=== PATIENT | female | born 1945 | race Caucasian/White ===

== ENCOUNTER 2021-07-01 10:19 | Inpatient (IN) | payer MEDICARE ==
[2021-07-01 15:47] VITALS: BMI 20.5
[2021-07-01] MEDS ORDERED: FLU VACC QS2021-22(65YR UP)/PF 240 MCG/0.7 ML SYRINGE IM ONE (16:00)
[2021-07-01] MEDS: Fentanyl 100 MCG/2 ML VIAL SLOW IVP PRN ×2 (17:44→21:31)
[2021-07-01] MEDS ORDERED: Albuterol Sulfate 2.5 mg/3 ml Neb NEB PRN (18:20)
[2021-07-01] MEDS ORDERED: Bisacodyl 10 MG SUPP PR PRN (18:20)
[2021-07-01] MEDS ORDERED: Albuterol 200 PUFF (6.7GM INHALER) INH PRN ×2 (18:59→19:15)
[2021-07-01] MEDS: Gabapentin 400 MG CAP PO SCH (21:27)
[2021-07-01] MEDS: Famotidine 20 MG TAB PO SCH (21:28)
[2021-07-01] MEDS: Enoxaparin Sodium 60 MG/0.6 ML SYRINGE SC SCH (21:30)
[2021-07-02] MEDS: Fentanyl 100 MCG/2 ML VIAL SLOW IVP PRN ×5 (01:17→22:00)
[2021-07-02] MEDS ORDERED: Cyclobenzaprine 10 MG TAB PO SCH ×2 (04:00→10:45)
[2021-07-02] MEDS: Levothyroxine Sodium 75 MCG TAB PO SCH (06:02)
[2021-07-02] MEDS ORDERED: hydrALAZINE 20 MG/ML VIAL SLOW IVP PRN (06:41)
[2021-07-02] MEDS ORDERED: Gabapentin 400 MG CAP PO SCH (07:30)
[2021-07-02] MEDS: Famotidine 20 MG TAB PO SCH ×2 (08:33→21:35)
[2021-07-02] MEDS: Gabapentin 400 MG CAP PO SCH ×2 (08:34→21:35)
[2021-07-02] MEDS: Aspirin 81 mg Enteric Coated Tablet PO SCH (08:34)
[2021-07-02] MEDS: Enoxaparin Sodium 60 MG/0.6 ML SYRINGE SC SCH ×2 (08:36→21:34)
[2021-07-02] MEDS: fentaNYL 50 mcg/hour Patch TD SCH (09:49)
[2021-07-02] MEDS ORDERED: Fentanyl 100 MCG/2 ML VIAL SLOW IVP SCH (10:30)
[2021-07-02] MEDS ORDERED: Lorazepam 2 MG/ML VIAL SLOW IVP PRN (10:39)
[2021-07-02] MEDS ORDERED: Guaifenesin DM 100-10/5 ML UDCUP PO PRN (14:00)
[2021-07-02 14:13] LABS: ALT (SGPT) 23 U/L (8-55); AST (SGOT) 47 U/L (5-34); Albumin 3.9 g/dL (3.4-4.8); Alkaline Phosphatase 53 U/L (40-110); Anion Gap 17 mmol/L (10-20); BUN (Urea Nitrogen) 7 mg/dL (9.8-20.1); Bilirubin, Total 0.4 mg/dL (0.2-1.2); Calc. Creatinine Clearance 57 mL/min (70-130); Calcium 8.4 mg/dL (7.8-10.44); Carbon Dioxide 19 mmol/L (23-31); Chloride 102 mmol/L (98-107); Globulin 2.6 g/dL (2.4-3.5); Glucose 124 mg/dL (83-110); Potassium 3.6 mmol/L (3.5-5.1); Protein, Total 6.5 g/dL (5.8-8.1); Sodium 134 mmol/L (136-145)
[2021-07-02 14:54] LABS: #Lymphocytes 0.7 thou/uL (1.20-3.40); #Monocytes 0.5 thou/uL (0.11-0.59); #Neutrophils 2.3 thou/uL (1.40-6.50); %Basophils 0.7 % (0.0-1.0); %Eosinophils 0.2 % (0.0-10.0); %Lymphocytes 19.9 % (21.0-51.0); %Monocytes 14.1 % (0.0-10.0); %Neutrophils 65.2 % (42.0-75.0); Hemoglobin 12.3 g/dL (12.0-16.0); Mean Corpuscular HGB CONC 34.7 g/dL (32.0-36.0); Mean Corpuscular Hemoglobin 31.7 pg (27.0-31.0); Mean Corpuscular Volume 91.5 fL (78.0-98.0); Mean Platelet Volume 7.7 fL (7.4-10.4); Platelet Count 130 thou/uL (130-400); RBC Distribution Width 12.1 % (11.5-14.5); Red Blood Cell (RBC) Count 3.86 mill/uL (4.20-5.40); White Blood Cell (WBC) Count 3.5 thou/uL (4.8-10.8)
[2021-07-02] MEDS: Acetaminophen 325 MG TAB PO PRN (15:43)
[2021-07-02 20:04] LABS: SARS-CoV-2 IgG Ab Non-Reactive (NonReactive)
[2021-07-02 20:09] LABS: SARS-CoV-2 IgG Index 0.02 S/CO (< 1.40)
[2021-07-02] MEDS: Cyclobenzaprine 10 MG TAB PO SCH (21:34)
[2021-07-02] MEDS: Rosuvastatin 10 MG TAB PO SCH (21:35)
[2021-07-02] MEDS ORDERED: Ondansetron PF 4 MG/2 ML Vial IVP PRN (22:05)
[2021-07-03] MEDS: Acetaminophen 325 MG TAB PO PRN (02:05)
[2021-07-03] MEDS: Levothyroxine Sodium 75 MCG TAB PO SCH (05:33)
[2021-07-03] MEDS: Cyclobenzaprine 10 MG TAB PO SCH ×2 (09:06→20:28)
[2021-07-03] MEDS: Famotidine 20 MG TAB PO SCH ×2 (09:06→20:28)
[2021-07-03] MEDS: Aspirin 81 mg Enteric Coated Tablet PO SCH (09:07)
[2021-07-03] MEDS: Gabapentin 400 MG CAP PO SCH ×2 (09:08→20:29)
[2021-07-03] MEDS: Enoxaparin Sodium 60 MG/0.6 ML SYRINGE SC SCH ×2 (09:09→20:28)
[2021-07-03] MEDS ORDERED: CASIRIVIMAB/IMDEVIMAB 10 ML in Sodium Chloride 0.9% 250 ML 250 ML IV SCH (13:00)
[2021-07-03] MEDS: Rosuvastatin 10 MG TAB PO SCH (20:29)
[2021-07-04] MEDS: Acetaminophen 325 MG TAB PO PRN (01:55)
[2021-07-04] MEDS: Levothyroxine Sodium 75 MCG TAB PO SCH (05:48)
[2021-07-04] MEDS: Aspirin 81 mg Enteric Coated Tablet PO SCH (09:05)
[2021-07-04] MEDS: Famotidine 20 MG TAB PO SCH ×2 (09:05→20:56)
[2021-07-04] MEDS: Enoxaparin Sodium 60 MG/0.6 ML SYRINGE SC SCH ×2 (09:05→20:55)
[2021-07-04] MEDS: Cyclobenzaprine 10 MG TAB PO SCH ×2 (09:05→20:55)
[2021-07-04] MEDS: Gabapentin 400 MG CAP PO SCH ×2 (09:09→20:56)
[2021-07-04] MEDS ORDERED: Sodium Chloride 0.9% 500 ML IV SCH (14:00)
[2021-07-04] MEDS: Rosuvastatin 10 MG TAB PO SCH (20:57)
[2021-07-05] MEDS: Levothyroxine Sodium 75 MCG TAB PO SCH (05:59)
[2021-07-05] MEDS: Aspirin 81 mg Enteric Coated Tablet PO SCH (08:30)
[2021-07-05] MEDS: Gabapentin 400 MG CAP PO SCH ×2 (08:37→21:03)
[2021-07-05] MEDS: Famotidine 20 MG TAB PO SCH ×2 (08:38→21:02)
[2021-07-05] MEDS: Cyclobenzaprine 10 MG TAB PO SCH ×2 (08:38→21:01)
[2021-07-05] MEDS: Enoxaparin Sodium 60 MG/0.6 ML SYRINGE SC SCH ×2 (08:38→21:01)
[2021-07-05] MEDS: fentaNYL 50 mcg/hour Patch TD SCH (11:47)
[2021-07-05] MEDS: Acetaminophen 325 MG TAB PO PRN (16:51)
[2021-07-05] MEDS: Rosuvastatin 10 MG TAB PO SCH (21:03)
[2021-07-06] MEDS: Levothyroxine Sodium 75 MCG TAB PO SCH (05:20)
[2021-07-06] MEDS: Enoxaparin Sodium 60 MG/0.6 ML SYRINGE SC SCH (08:37)
[2021-07-06] MEDS: Cyclobenzaprine 10 MG TAB PO SCH ×2 (08:37→21:42)
[2021-07-06] MEDS: Aspirin 81 mg Enteric Coated Tablet PO SCH (08:37)
[2021-07-06] MEDS: Famotidine 20 MG TAB PO SCH ×2 (08:37→21:42)
[2021-07-06] MEDS: Gabapentin 400 MG CAP PO SCH ×2 (08:38→21:50)
[2021-07-06 10:15] LABS: #Eosinphils 0.1 thou/uL (0.0-0.7); #Lymphocytes 1.2 thou/uL (1.20-3.40); #Monocytes 0.6 thou/uL (0.11-0.59); #Neutrophils 5.6 thou/uL (1.40-6.50); %Basophils 0.3 % (0.0-1.0); %Eosinophils 0.7 % (0.0-10.0); %Lymphocytes 16.1 % (21.0-51.0); %Monocytes 8.1 % (0.0-10.0); %Neutrophils 74.9 % (42.0-75.0); Hemoglobin 10.6 g/dL (12.0-16.0); Mean Corpuscular HGB CONC 34.2 g/dL (32.0-36.0); Mean Corpuscular Hemoglobin 31.2 pg (27.0-31.0); Mean Corpuscular Volume 91.2 fL (78.0-98.0); Mean Platelet Volume 8.2 fL (7.4-10.4); Platelet Count 128 thou/uL (130-400); RBC Distribution Width 12.3 % (11.5-14.5); White Blood Cell (WBC) Count 7.5 thou/uL (4.8-10.8)
[2021-07-06 10:50] LABS: Chloride 101 mmol/L (98-107); Potassium 3.9 mmol/L (3.5-5.1); Sodium 133 mmol/L (136-145)
[2021-07-06 10:51] LABS: Glucose 109 mg/dL (83-110)
[2021-07-06 10:52] LABS: Carbon Dioxide 24 mmol/L (23-31)
[2021-07-06 10:53] LABS: Anion Gap 12 mmol/L (10-20)
[2021-07-06 10:55] LABS: BUN (Urea Nitrogen) 12 mg/dL (9.8-20.1); Calc. Creatinine Clearance 65 mL/min (70-130)
[2021-07-06] MEDS: Enoxaparin Sodium 40 MG/0.4 ML SYRINGE SC SCH (21:42)
[2021-07-06] MEDS: Rosuvastatin 10 MG TAB PO SCH (21:43)
[2021-07-06] MEDS: Acetaminophen 325 MG TAB PO PRN (21:43)
[2021-07-07] MEDS: Levothyroxine Sodium 75 MCG TAB PO SCH (06:04)
[2021-07-07] MEDS: Acetaminophen 325 MG TAB PO PRN ×3 (06:04→21:22)
[2021-07-07] MEDS: Famotidine 20 MG TAB PO SCH ×2 (08:43→21:22)
[2021-07-07] MEDS: Cyclobenzaprine 10 MG TAB PO SCH (08:43)
[2021-07-07] MEDS: Aspirin 81 mg Enteric Coated Tablet PO SCH (08:43)
[2021-07-07] MEDS: Gabapentin 400 MG CAP PO SCH ×2 (08:43→21:23)
[2021-07-07] MEDS: Cyclobenzaprine 10 MG TAB PO PRN (13:56)
[2021-07-07] MEDS: Enoxaparin Sodium 40 MG/0.4 ML SYRINGE SC SCH (21:22)
[2021-07-07] MEDS: Rosuvastatin 10 MG TAB PO SCH (21:22)
[2021-07-08] MEDS: Acetaminophen 325 MG TAB PO PRN (05:23)
[2021-07-08] MEDS: Levothyroxine Sodium 75 MCG TAB PO SCH (05:23)
[2021-07-08] MEDS: Gabapentin 400 MG CAP PO SCH ×2 (07:48→21:40)
[2021-07-08] MEDS: Cyclobenzaprine 10 MG TAB PO PRN (07:48)
[2021-07-08] MEDS: Famotidine 20 MG TAB PO SCH ×2 (07:48→21:49)
[2021-07-08] MEDS: Aspirin 81 mg Enteric Coated Tablet PO SCH (07:49)
[2021-07-08] MEDS: fentaNYL 50 mcg/hour Patch TD SCH (10:18)
[2021-07-08] MEDS: Enoxaparin Sodium 40 MG/0.4 ML SYRINGE SC SCH (21:40)
[2021-07-08] MEDS: Megestrol Acetate 40 MG TAB PO SCH (21:41)
[2021-07-08] MEDS: Rosuvastatin 10 MG TAB PO SCH (21:41)
[2021-07-08] MEDS: buPROPion 75 MG TAB PO SCH (21:49)
[2021-07-09] MEDS: Levothyroxine Sodium 75 MCG TAB PO SCH (05:43)
[2021-07-09] MEDS: Megestrol Acetate 40 MG TAB PO SCH ×2 (08:04→20:53)
[2021-07-09] MEDS: Gabapentin 400 MG CAP PO SCH ×2 (08:04→20:52)
[2021-07-09] MEDS: Aspirin 81 mg Enteric Coated Tablet PO SCH (08:04)
[2021-07-09] MEDS: buPROPion 75 MG TAB PO SCH ×2 (08:04→20:51)
[2021-07-09] MEDS: Famotidine 20 MG TAB PO SCH ×2 (08:04→20:51)
[2021-07-09] MEDS: Enoxaparin Sodium 40 MG/0.4 ML SYRINGE SC SCH (20:51)
[2021-07-09] MEDS: Rosuvastatin 10 MG TAB PO SCH (20:55)
[2021-07-10] MEDS: Levothyroxine Sodium 75 MCG TAB PO SCH (06:00)
[2021-07-10 07:52] VITALS: BP 158/83; TEMP 97.8
[2021-07-10] MEDS: Megestrol Acetate 40 MG TAB PO SCH ×2 (08:31→10:05)
[2021-07-10] MEDS: Famotidine 20 MG TAB PO SCH ×2 (08:31→10:04)
[2021-07-10] MEDS: Gabapentin 400 MG CAP PO SCH ×2 (08:31→10:03)
[2021-07-10] MEDS: Aspirin 81 mg Enteric Coated Tablet PO SCH ×2 (08:32→10:04)
[2021-07-10] MEDS: buPROPion 75 MG TAB PO SCH ×2 (09:03→10:02)
== END 2021-07-10 13:05 | disposition hospice, home (50) | DRG 562 ==
LOC: T4-B 14:35 → OBSVTOIN 07-02 17:13
PROVIDERS: ADMIT Internal Medicine; ATTEND Internal Medicine
PROC: XW033G6 Introduction of REGN-COV2 Monoclonal Antibody into Peripheral Vein, Percutaneous Approach, New Technology Group 6 (ICD-10-PCS; principal; 2021-07-03)
DX: S42.332A Displaced oblique fracture of shaft of humerus, left arm, initial encounter for closed fracture (principal); U07.1 COVID-19; S22.42XA Multiple fractures of ribs, left side, initial encounter for closed fracture; D68.51 Activated protein C resistance; M41.9 Scoliosis, unspecified; E03.9 Hypothyroidism, unspecified; J44.9 Chronic obstructive pulmonary disease, unspecified; Z66 Do not resuscitate; G89.29 Other chronic pain; W19.XXXA Unspecified fall, initial encounter; F32.A Depression, unspecified; Z51.5 Encounter for palliative care; Z86.718 Personal history of other venous thrombosis and embolism; Z86.73 Personal history of transient ischemic attack (TIA), and cerebral infarction without residual deficits; Z88.5 Allergy status to narcotic agent; Z88.8 Allergy status to other drugs, medicaments and biological substances; Z79.51 Long term (current) use of inhaled steroids; Z79.899 Other long term (current) drug therapy; Z79.82 Long term (current) use of aspirin; Y92.009 Unspecified place in unspecified non-institutional (private) residence as the place of occurrence of the external cause; Z90.710 Acquired absence of both cervix and uterus
CPT/HCPCS: 36415; 80048; 80053; 85025; 86769; 96372; 96374; 96375; 96376; G0378; J0360; J1650; J2060; J2405; J3010; J7030; J7050; M0243; Q0244; S0179

== ENCOUNTER 2022-10-12 00:28 | Inpatient (IN) | payer OTHER, MEDICARE ==
[2022-10-13] MEDS ORDERED: Acetaminophen 325 MG TAB PO PRN (01:30)
[2022-10-13] MEDS ORDERED: Sodium Chloride 0.9% 1,000 ML IV SCH ×2 (01:30→02:30)
[2022-10-13] MEDS ORDERED: Ondansetron PF 4 MG/2 ML Vial IVP PRN ×2 (01:30→02:17)
[2022-10-13] MEDS ORDERED: Ondansetron ODT 4 MG TAB SL PRN (01:30)
[2022-10-13 01:33] VITALS: BMI 20.7
[2022-10-13] MEDS ORDERED: Dextrose 50% Abboject 50 ML SYRINGE SLOW IVP PRN (02:13)
[2022-10-13] MEDS ORDERED: Dextrose 5% in Water 1,000 ML IV PRN (02:13)
[2022-10-13] MEDS ORDERED: Ipratropium/Albuterol 3 ML NEB NEB PRN (02:13)
[2022-10-13] MEDS ORDERED: Acetaminophen 500 MG TAB PO PRN (02:17)
[2022-10-13] MEDS ORDERED: HumaLOG 300 UNITS/3 ML VIAL SC PRN ×2 (02:20)
[2022-10-13] MEDS ORDERED: Cyclobenzaprine 10 MG TAB PO PRN ×2 (02:22→09:09)
[2022-10-13] MEDS: hydrALAZINE 20 MG/ML VIAL SLOW IVP PRN ×3 (03:07→18:18)
[2022-10-13 05:37] LABS: #Lymphocytes 1.1 thou/uL (1.20-3.40); #Monocytes 0.6 thou/uL (0.11-0.59); #Neutrophils 4.5 thou/uL (1.40-6.50); %Basophils 0.4 % (0.0-1.0); %Eosinophils 0.7 % (0.0-10.0); %Lymphocytes 17.2 % (21.0-51.0); %Monocytes 9.9 % (0.0-10.0); %Neutrophils 71.8 % (42.0-75.0); Hemoglobin 10.9 g/dL (12.0-16.0); Mean Corpuscular HGB CONC 33.4 g/dL (32.0-36.0); Mean Corpuscular Hemoglobin 29.2 pg (27.0-31.0); Mean Corpuscular Volume 87.2 fl (78.0-98.0); Mean Platelet Volume 7.3 fL (7.4-10.4); Platelet Count 235 10x3/uL (130-400); RBC Distribution Width 12.8 % (11.5-14.5); Red Blood Cell (RBC) Count 3.74 mill/uL (4.20-5.40); White Blood Cell (WBC) Count 6.3 10x3/uL (4.8-10.8)
[2022-10-13 05:56] LABS: Anion Gap 13 mmol/L (10-20); BUN (Urea Nitrogen) 9 mg/dL (9.8-20.1); Calc. Creatinine Clearance 55 mL/min (70-130); Calcium 8.7 mg/dL (7.8-10.44); Carbon Dioxide 19 mmol/L (23-31); Chloride 104 mmol/L (98-107); Estimated GFR 88; Glucose 94 mg/dL (83-110); Potassium 3.4 mmol/L (3.5-5.1); Sodium 133 mmol/L (136-145)
[2022-10-13] MEDS: Promethazine HCl 25 MG/ML VIAL IM PRN ×2 (06:11→11:46)
[2022-10-13] MEDS: Acetaminophen 500 MG TAB PO SCH ×3 (07:30→18:18)
[2022-10-13] MEDS ORDERED: Potassium Chloride 20 MEQ/100 ML PREMIX BAG IVPB SCH (08:00)
[2022-10-13] MEDS: Famotidine 20 MG TAB PO SCH ×2 (08:27→20:30)
[2022-10-13] MEDS: Losartan 25 MG TAB PO SCH (08:27)
[2022-10-13] MEDS: Ondansetron PF 4 MG/2 ML Vial IVP PRN ×2 (08:28→14:46)
[2022-10-13] MEDS ORDERED: METHADONE HCL 5 MG PO SCH (09:00)
[2022-10-13] MEDS ORDERED: Scopolamine 1.5 mg/72 hour Patch TD SCH (09:00)
[2022-10-13] MEDS ORDERED: Diazepam 2 MG TAB PO PRN (09:09)
[2022-10-13] MEDS ORDERED: Diazepam 5 MG TAB PO SCH (09:15)
[2022-10-13] MEDS ORDERED: Melatonin 3 MG TAB PO PRN (09:28)
[2022-10-13] MEDS ORDERED: Potassium Chloride 40 MEQ in Sodium Chloride 0.9% 250 ML 250 ML IV SCH (10:00)
[2022-10-13] MEDS: METHadone HCl 10 MG TAB PO SCH (20:31)
[2022-10-13] MEDS: Gabapentin 300 MG CAP PO SCH (20:35)
[2022-10-13] MEDS ORDERED: Non-Formulary Item 1 EACH (Melatonin [Melatonin] 10 MG Tablet) PO SCH (21:00)
[2022-10-13] MEDS ORDERED: Non-Formulary Item 1 EACH (Gabapentin [Gabapentin] 600 MG Tablet) PO SCH (21:00)
[2022-10-14] MEDS: Acetaminophen 500 MG TAB PO SCH ×3 (04:20→14:21)
[2022-10-14] MEDS: Ondansetron PF 4 MG/2 ML Vial IVP PRN (04:33)
[2022-10-14] MEDS ORDERED: Levothyroxine Sodium 75 MCG TAB PO SCH (06:00)
[2022-10-14 07:44] LABS: Anion Gap 14 mmol/L (10-20); BUN (Urea Nitrogen) 8 mg/dL (9.8-20.1); Calc. Creatinine Clearance 61 mL/min (70-130); Calcium 8.4 mg/dL (7.8-10.44); Carbon Dioxide 16 mmol/L (23-31); Chloride 105 mmol/L (98-107); Estimated GFR 90; Glucose 93 mg/dL (83-110); Magnesium 2.1 mg/dL (1.6-2.6); Potassium 3.6 mmol/L (3.5-5.1); Sodium 131 mmol/L (136-145)
[2022-10-14 07:52] LABS: #Lymphocytes 1.1 thou/uL (1.20-3.40); #Monocytes 0.9 thou/uL (0.11-0.59); #Neutrophils 7.7 thou/uL (1.40-6.50); %Basophils 0.3 % (0.0-1.0); %Eosinophils 0.3 % (0.0-10.0); %Lymphocytes 10.8 % (21.0-51.0); %Monocytes 9.4 % (0.0-10.0); %Neutrophils 79.1 % (42.0-75.0); Hemoglobin 10.6 g/dL (12.0-16.0); Mean Corpuscular Hemoglobin 29.7 pg (27.0-31.0); Mean Platelet Volume 7.6 fL (7.4-10.4); Platelet Count 253 10x3/uL (130-400); RBC Distribution Width 13.2 % (11.5-14.5); Red Blood Cell (RBC) Count 3.58 mill/uL (4.20-5.40); White Blood Cell (WBC) Count 9.8 10x3/uL (4.8-10.8)
[2022-10-14] MEDS: METHadone HCl 10 MG TAB PO SCH (08:14)
[2022-10-14] MEDS: Famotidine 20 MG TAB PO SCH (08:15)
[2022-10-14] MEDS: Losartan 25 MG TAB PO SCH (08:15)
[2022-10-14] MEDS: Gabapentin 300 MG CAP PO SCH (08:15)
[2022-10-14] MEDS ORDERED: Potassium Phosphate 30 MMOL in Sodium Chloride 0.9% 250 ML 250 ML IVPB SCH (09:00)
[2022-10-14] MEDS ORDERED: Amlodipine 10 MG TAB PO SCH (09:00)
[2022-10-14] MEDS ORDERED: Non-Formulary Item 1 EACH (Levothyroxine Sodium [Levothyroxine] 75 MCG Capsule) PO SCH (09:00)
[2022-10-14] MEDS ORDERED: Diazepam 2 MG TAB PO PRN (09:09)
[2022-10-14] MEDS ORDERED: Potassium Chloride 20 MEQ TAB PO SCH (09:45)
[2022-10-14 11:49] VITALS: TEMP 98.9
[2022-10-14 17:22] VITALS: BP 147/91
[2022-10-15] MEDS ORDERED: Losartan 25 MG TAB PO SCH (09:00)
== END 2022-10-14 18:06 | disposition home health service (06) | DRG 86 ==
LOC: IMCU/EMU 10-13 01:09
PROVIDERS: ADMIT Surgery; ATTEND Surgery
DX: S06.5X0A Traumatic subdural hemorrhage without loss of consciousness, initial encounter (principal); D68.51 Activated protein C resistance; W01.0XXA Fall on same level from slipping, tripping and stumbling without subsequent striking against object, initial encounter; R40.2412 Glasgow coma scale score 13-15, at arrival to emergency department; I10 Essential (primary) hypertension; E03.9 Hypothyroidism, unspecified; Z88.5 Allergy status to narcotic agent; Z91.041 Radiographic dye allergy status; Z90.710 Acquired absence of both cervix and uterus; Z79.82 Long term (current) use of aspirin; Z79.890 Hormone replacement therapy
CPT/HCPCS: 36415; 36416; 70450; 80048; 83735; 84100; 85025; J0360; J2405; J2550; J3480; J7050; Q0162